=== PATIENT | male | born 1955 | race Caucasian/White ===

== ENCOUNTER 2021-12-12 10:43 | Outpatient (CLI) | payer BC ==
[2021-12-12] MEDS ORDERED: Iopamidol 370 76% 100 ML VIAL ONE (13:57)
== END 2021-12-12 10:44 | disposition home or self-care (01) ==
LOC: CT 10:43
PROVIDERS: ATTEND Internal Medicine Cardiovascular Disease
DX: I25.10 Atherosclerotic heart disease of native coronary artery without angina pectoris (principal); I65.23 Occlusion and stenosis of bilateral carotid arteries
CPT/HCPCS: 70498; 82565; Q9967

== ENCOUNTER 2021-12-26 06:01 | Inpatient (IN) | payer BC ==
[2021-12-26] MEDS ORDERED: Heparin 5,000 UNITS/ML VIAL ONE (06:31)
[2021-12-26] MEDS ORDERED: Protamine Sulfate 50 MG/5 ML VIAL ONE (06:31)
[2021-12-26] MEDS ORDERED: Bupivacaine HCl 0.5%/Epinephrine 1:200,000/PF 30 ml Vial ONE (06:31)
[2021-12-26] MEDS ORDERED: fentaNYL Citrate/PF 100 MCG/2 ML SYRINGE ONE (06:50)
[2021-12-26] MEDS ORDERED: Lidocaine 2% PF 5 ML VIAL ONE (06:56)
[2021-12-26 07:03] LABS: Hemoglobin 12.6 g/dL (14.0-18.0); Mean Corpuscular HGB CONC 33.8 g/dL (32.0-36.0); Mean Corpuscular Hemoglobin 31.6 pg (27.0-31.0); Mean Corpuscular Volume 93.4 fL (78.0-98.0); Platelet Count 92 thou/uL (130-400); RBC Distribution Width 16.7 % (11.5-14.5); Red Blood Cell (RBC) Count 3.98 mill/uL (4.70-6.10); White Blood Cell (WBC) Count 5.2 thou/uL (4.8-10.8)
[2021-12-26 07:12] LABS: Anion Gap 17 mmol/L (10-20); BUN (Urea Nitrogen) 18 mg/dL (8.4-25.7); Calc. Creatinine Clearance 107 mL/min (70-130); Calcium 9.6 mg/dL (7.8-10.44); Carbon Dioxide 22 mmol/L (23-31); Chloride 102 mmol/L (98-107); Estimated GFR 81; Glucose 105 mg/dL (80-115); Potassium 4.4 mmol/L (3.5-5.1); Sodium 137 mmol/L (136-145)
[2021-12-26] MEDS ORDERED: CEFAZOLIN 2 GM VIAL ONE (07:18)
[2021-12-26] MEDS ORDERED: Sodium Chloride 0.9% 100 ML ONE (07:18)
[2021-12-26] MEDS ORDERED: Rocuronium Bromide 10 MG/ML (10ML VIAL) ONE (07:32)
[2021-12-26] MEDS ORDERED: Ondansetron PF 4 MG/2 ML Vial ONE (07:32)
[2021-12-26] MEDS ORDERED: Dexamethasone 20 MG/5 ML VIAL ONE (07:32)
[2021-12-26] MEDS ORDERED: PROPOFOL 200 MG/20 ML VIAL ONE (07:32)
[2021-12-26] MEDS ORDERED: Lidocaine 1% MPF 2 ML VIAL ONE (07:32)
[2021-12-26] MEDS ORDERED: HYDROcodone/Acetaminophen 5/325 mg Tablet PO PRN ×2 (09:28)
[2021-12-26] MEDS ORDERED: Dextrose 50% Abboject 50 ML SYRINGE SLOW IVP PRN (09:28)
[2021-12-26] MEDS ORDERED: Dextrose 5% in Water 1,000 ML IV PRN (09:28)
[2021-12-26] MEDS ORDERED: Fentanyl 100 MCG/2 ML VIAL SLOW IVP PRN ×2 (09:28)
[2021-12-26] MEDS ORDERED: Ondansetron PF 4 MG/2 ML Vial IVP PRN (09:28)
[2021-12-26] MEDS ORDERED: niCARdipine 25 MG in Sodium Chloride 0.9% 250 ML 250 ML IVPB PRN (09:28)
[2021-12-26] MEDS ORDERED: Phenylephrine 40 MG in Sodium Chloride 0.9% 250 ML 250 ML IVPB PRN (09:28)
[2021-12-26] MEDS ORDERED: Insulin Regular 300 UNITS/3 ML VIAL SC PRN (09:28)
[2021-12-26] MEDS ORDERED: Acetaminophen 325 MG TAB PO PRN (09:28)
[2021-12-26] MEDS ORDERED: Aspirin Chewable 81 MG TAB PO SCH (10:30)
[2021-12-26 11:36] VITALS: BMI 29.6
[2021-12-26] MEDS: Sodium Chloride 0.9% 1,000 ML IV SCH (11:56)
[2021-12-26] MEDS: CEFAZOLIN 2 GM in Sodium Chloride 0.9% 100 ML IVPB SCH ×2 (16:45→23:51)
[2021-12-27] MEDS: Sodium Chloride 0.9% 1,000 ML IV SCH (05:33)
[2021-12-27 08:07] VITALS: TEMP 98.1
[2021-12-27] MEDS: CEFAZOLIN 2 GM in Sodium Chloride 0.9% 100 ML IVPB SCH (08:50)
[2021-12-27 09:00] VITALS: BP 152/87
[2021-12-27] MEDS ORDERED: Amlodipine 10 MG TAB PO SCH (09:00)
[2021-12-27] MEDS ORDERED: Aspirin Chewable 81 MG TAB PO SCH (09:00)
[2021-12-27] MEDS ORDERED: Ascorbic Acid 500 mg Chewable Tablet PO SCH (09:00)
[2021-12-27] MEDS ORDERED: Losartan 25 MG TAB PO SCH (09:00)
[2021-12-27] MEDS ORDERED: Atorvastatin Calcium 40 MG TAB PO SCH (09:00)
[2021-12-27] MEDS ORDERED: Allopurinol 300 MG TAB PO SCH (09:00)
[2021-12-27] MEDS ORDERED: Tamsulosin HCl 0.4 MG CAP PO SCH (09:00)
[2021-12-27] MEDS ORDERED: Bisoprolol Fumarate 5 MG TAB PO SCH (09:00)
== END 2021-12-27 10:09 | disposition home or self-care (01) | DRG 39 ==
LOC: SURG A 06:01 → CCU 10:31 → EDSTATUS 16:12
PROVIDERS: ADMIT Thoracic Surgery (Cardiothoracic Vascular Surgery); ATTEND Thoracic Surgery (Cardiothoracic Vascular Surgery)
PROC: 03CK0ZZ Extirpation of Matter from Right Internal Carotid Artery, Open Approach (ICD-10-PCS; principal; 2021-12-26)
PROC: 03UK0KZ Supplement Right Internal Carotid Artery with Nonautologous Tissue Substitute, Open Approach (ICD-10-PCS; 2021-12-26)
DX: I65.21 Occlusion and stenosis of right carotid artery (principal); I25.10 Atherosclerotic heart disease of native coronary artery without angina pectoris; E78.5 Hyperlipidemia, unspecified; I10 Essential (primary) hypertension; E11.9 Type 2 diabetes mellitus without complications; Z98.890 Other specified postprocedural states
CPT/HCPCS: 36416; 80048; 85027; 93005; 93010; C1768; J0690; J1100; J1642; J1644; J2001; J2405; J2704; J2720; J3010; J3490; J7050